=== PATIENT | male | born 2000 | race Caucasian/White ===

== ENCOUNTER 2024-10-02 02:28 | Emergency (ER) | payer SELFPAY ==
[2024-10-02 02:30] VITALS: BP 127/93
[2024-10-02 02:45] VITALS: BMI 27.5
--- NOTE | 2024-10-02 05:49 | ED.GENMED ---
History of Present Illness
General
Chief Complaint: Crisis Evaluation
Source: patient, police and other (302 petition filed by [email or web address])
Exam Limitations: none
Time Seen by Provider: 10/02/24 05:00
Nursing documentation reviewed up to this point in time: agreed with
History of Present Illness
History of Present Illness:
This is a 24-year-old male who has no significant past medical history, takes no medicines on a daily basis.
He presents in police custody after girlfriend filed a 302 petition concern for patient voicing that he wanted to kill himself and that he had a firearm. According to girlfriend's report he has been attempting to hurt himself since Sunday, last
week.
Patient adamantly denies the statements. 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
He reports no previous history of psychiatric illness, no previous psychiatric treatment, no prior suicide attempts.
He is quite angry regarding the situation but remains cooperative.
He takes no medicines on a daily basis.
Awaiting telepsychiatry evaluation.
Past History
Past History
ED Past Medical History: None
ED Past Surgical History: None
Social History
Tobacco: Non-smoker
Drug: None
Personal: Single
Employment: Employed (Construction)
Family History
Family History: Unable to obtain (Patient declines to answer)
Phy Exam
Physical Exam
Physical Exam:
GENERAL: 24-year-old male appears his stated age, lying supine on stretcher. Somewhat angry disposition but cooperative.
EYE: anicteric
NECK: Supple, nontender, no meningismus, no significant adenopathy.
ENT: oral mucosa is moist. No rhinorrhea.
CARDIAC: Regular rate and rhythm. no murmur.
LUNGS: Clear breath sounds bilaterally, no acute respiratory distress, no wheezes/rales/rhonchi
ABDOMEN: Soft, nondistended, without focal tenderness
NEUROLOGICAL: Alert and oriented x3, no focal neuro deficits. Gait is tyler and steady.
SKIN: Warm and dry, normal color, skin intact. No rash.
MUSCULOSKELETAL: No C/C/E. peripheral pulses are full and equal b/l. No palpable tenderness.
PSYCH: Angry. Adamantly denies suicidal thoughts. Denies making statements to girlfriend that he wanted to kill himself.
Course
Orders/Labs/Results
Orders:
Orders
10/02/24 02:58
Crisis Consult Urgent
Reason for Consult: 302
10/02/24 05:34
Urine Drug Abuse Screen Urgent
Vital Signs
Initial and Last Documented VS:
Initial Vital Signs
Temp Pulse Resp BP Pulse Ox
98.8 F 108 18 127/93 98
10/02/24 02:30 10/02/24 02:30 10/02/24 02:30 10/02/24 02:30 10/02/24 02:30
Last Documented Vital Signs
Temp Pulse Resp BP Pulse Ox
98.8 F 108 18 127/93 98
10/02/24 02:30 10/02/24 02:30 10/02/24 02:30 10/02/24 02:30 10/02/24 02:30
MDM/Problems Addressed
Differential Diagnosis Includes:
Concern for potential self-harm versus domestic discord.
Awaiting telepsychiatrist evaluation.
Patient is admittedly angry regarding the situation but remains cooperative.
*Pulse Oximetry
Patient hypoxic: no
*Critical Care Note
Total Time (30-74mins, 75-104mins- exclusive of procedures): Not Applicable
Update Note
Update Note:
05:40
Patient has been evaluated by telepsychiatrist who recommends upholding 302.
Patient is not happy with the situation but again remains cooperative.
ED Attending Note
-
Portions of this chart may have been created with voice recognition software.� Occasional wrong word or��sound alike� substitutions may have occurred due to the inherent limitations of voice recognition software.
Discharge Plan
Departure
Patient Disposition: Psych Facility
Date of Disposition: 10/02/24
Time of Disposition: 05:54
Patient with high blood pressure during this ER visit?: No
Condition: Good
Discharge Problem:
Involuntary commitment
Referrals:
UNKNOWN - PT DOES,NOT KNOW [Family Provider] -
Interventions
Interventions:
*Risk Screen - Suicide Last Done: 10/02/24 02:30
*General Assessment Last Done: 10/02/24 02:45
*Neglect/Abuse Screening Last Done: 10/02/24 02:45
*ED- Fall Risk Assessment Last Done: 10/02/24 02:45
*ED COVID-19 Vaccine History Last Done: 10/02/24 02:45
ED-Psychological Assessment Last Done: 10/02/24 02:45
Discharge Date and Time
Print Language: BAHRAINI
[2024-10-02 06:36] VITALS: BP 132/82
--- NOTE | 2024-10-02 11:04 | W.PN.UPDATE ---
Update Note
Progress Note Update
discussed with dr lilly. consult canceled as patient going to [facility] this morning at 1130 am as per 302 commitment
[2024-10-02 11:27] VITALS: BP 126/74
== END 2024-10-02 11:33 ==
LOC: EMR 02:28
PROVIDERS: EMERGENCY PHYSICIAN Emergency Medicine
DX: R45.851 Suicidal ideations (principal)
CPT/HCPCS: 99285